=== PATIENT | female | born 1990 | race Caucasian/White ===

== ENCOUNTER 2017-08-30 11:52 | Emergency (ER) | payer MEDICAID ==
[2017-08-30 12:07] VITALS: BP 119/57; PULSE 65; RESP 16; TEMP 97.7; O2SAT 98
--- NOTE | 2017-08-30 12:19 | EDPHY ---
HPI/HX/ROS/PE/MDM Narrative: CHIEF COMPLAINT: Chills, cough, malaise HPI: The patient is a 27-year-old female with a history of several mental health disorders as well as chronic back pain and migraines. She reports feeling well yesterday but woke up this morning with chills, malaise, cough, sore throat and 2 episodes of nonbloody diarrhea. Her children apparently have very similar symptoms. The patient has taken a single Midol for relief. She also complains of her chronic headache but this is unchanged in character. REVIEW OF SYSTEMS: Aside from elements discussed in the HPI, a comprehensive 10-point review of systems was reviewed and is negative. PMH: Bipolar, depression, PTSD, anxiety, chronic back pain, chronic migraines SOCIAL HISTORY: Patient works at a gas station. She is mother children. PHYSICAL EXAM: General:Patient is alert, in no acute distress. She is well appearing. ENT:Eyes are normal to inspection. ENT inspection normal. Neck: Normal inspection. Full range of motion. No meningismus. Respiratory:No respiratory distress. Breath sounds normal bilaterally. Cardiovascular: Regular rate and rhythm. Strong peripheral pulses. Normal cap refill. Abdomen:The abdomen is nontender to palpation. There are no peritoneal signs. There are normal bowel sounds. Back: Normal to inspection. No tenderness to palpation. Skin: Normal color. No rash. Warm and dry. Extremities: Normal appearance. Full range of motion. Neuro: Oriented x3. Normal motor function. Normal sensory function. General Time Seen by Provider: 08/30/17 11:53 Initial Vital Signs: Initial Vital Signs Temperature (C) 36.5 C 08/30/17 11:59 Heart Rate 65 08/30/17 11:59 Respiratory Rate 16 08/30/17 11:59 Blood Pressure 119/57 L 08/30/17 11:59 O2 Sat (%) 98 08/30/17 11:59 O2 Delivery Mode Room Air Allergies/Adverse Reactions: No Known Allergies Allergy (Verified 08/30/17 11:57) Home Medications: Medication Instructions Recorded Cyclobenzaprine PRN 08/30/17 Trazadone PRN 08/30/17 Departure - Departure Disposition: Home, Routine, Self-Care Clinical Impression: Viral syndrome Condition: Good Instructions: Viral Syndrome (ED) Additional Instructions: Use ibuprofen and Tylenol as needed for fever and body aches. Follow up with your primary care physician within 72 hours for reevaluation. Drink plenty of fluids. Return to the emergency department immediately for high fever, severe headache or neck pain, difficulty breathing, abdominal pain, rash or other worsening of condition. Referrals: RICH MIXON,. [Primary Care Provider] - As per Instructions Stand Alone Forms: Work Excuse
== END 2017-08-30 12:40 | disposition home or self-care (01) ==
LOC: CED 11:52
DX: B34.9 Viral infection, unspecified (principal)
CPT/HCPCS: 87880-PO